=== PATIENT | female | born 1980 | race Caucasian/White ===

== ENCOUNTER 2017-12-24 06:43 | Emergency (ER) | payer SELFPAY ==
[~2017-12-24] VITALS: Ht 165.1 cm; Wt 97.8 kg
[~2017-12-24 06:43] MED LIST: NO HOME MEDS
[2017-12-24 07:42] LABS: BASOPHIL (%) 0.9 % (0-1); BASOPHIL COUNT 0.1 K/uL (0-0.1); EOSINOPHIL (%) 2.6 % (0-5); EOSINOPHIL COUNT 0.2 K/uL (0-0.3); HEMATOCRIT 38.1 % (36.0-46.0); HEMOGLOBIN 12.9 G/DL (11.9-15.5); IMMATURE GRANULOCYTE (%) 0.4 % (0.0-0.7); LYMPHOCYTE (%) 21.8 % (15-42); LYMPHOCYTE COUNT 1.9 K/uL (1.0-2.8); MCH 28.7 PG (29.0-34.0); MCHC 33.9 G/DL (30.0-36.0); MCV 84.9 FL (83-99); MONOCYTE (%) 8.8 % (3-12); MONOCYTE COUNT 0.8 K/uL (0-0.8); NEUTROPHIL (%) 65.5 % (45-76); NEUTROPHIL COUNT 5.6 K/uL (1.8-6.4); PLATELET COUNT 359 K/uL (156-360); RBC DIS.WIDTH-CV 12.7 % (11.8-14.6); RBC DIS.WIDTH-SD 38.6 % (39-53); RED BLOOD COUNT 4.49 M/uL (3.80-5.20); WHITE BLOOD COUNT 8.5 K/uL (4.1-10.2)
[2017-12-24 08:06] LABS: APPEARANCE CLEAR ((CLEAR)); BILIRUBIN NEGATIVE; BLOOD SMALL; COLOR YELLOW ((YELLOW)); GLUCOSE (STRIP) NEGATIVE; KETONES NEGATIVE; LEUKOCYTES NEGATIVE; NITRITE NEGATIVE; PROTEIN (STRIP) NEGATIVE; SPECIFIC GRAVITY 1.027 (1.000-1.030); UROBILINOGEN 0.2 MG/DL (0.2-1.0)
[2017-12-24 08:11] LABS: BACTERIA NONE SEEN /HPF; EPITHELIAL CELLS 1+ /HPF; MUCUS TRACE /LPF; RED BLOOD CELLS 0-5 /HPF (0-5); UCUL ADDED? NO; WHITE BLOOD CELLS 0-5 /HPF (0-5)
[2017-12-24 08:12] LABS: ALBUMIN 4.2 G/DL (3.2-4.8); CHLORIDE 105 MEQ/L (99-109); POTASSIUM 3.7 MEQ/L (3.7-5.4); SODIUM 136 MEQ/L (136-147); TOTAL BILIRUBIN 0.4 MG/DL (0.0-1.0)
[2017-12-24 08:17] LABS: ALKALINE PHOSPHATASE 110 IU/L (3-129); ALT (GPT) 31 IU/L (3-49); AST (GOT) 27 IU/L (2-34); CREATININE 0.7 MG/DL (0.6-1.3); GFR ESTIMATE (CALCULATED) > 59 mL/min/; GLUCOSE 116 mg/dL (70-99); LIPASE 19 U/L (1.0-51.0); TOTAL PROTEIN 6.9 G/DL (6.4-8.3); UREA NITROGEN (BUN) 11 mg/dL (9-23)
[2017-12-24 08:21] LABS: QUANTITATIVE HCG < 4.0 MIU/ML
[2017-12-24] MEDS ORDERED: ZOFRAN ODT4 MG PO (11:02)
[2017-12-24] MEDS ORDERED: NORCO 5/3251 TABLET PO (11:03)
[2017-12-24 11:11] VITALS: BP 158/92
[2017-12-24] MEDS ORDERED: TUMS500 MG PO (22:25)
[2017-12-24] MEDS ORDERED: TYLENOL EXTRA500 MG PO (22:25)
== END 2017-12-24 11:12 | disposition left against medical advice (07) ==
LOC: EME 06:43
PROVIDERS: Emergency Medicine
DX: K80.20 Calculus of gallbladder without cholecystitis without obstruction (principal); Z87.19 Personal history of other diseases of the digestive system; Z87.42 Personal history of other diseases of the female genital tract; Z88.0 Allergy status to penicillin
CPT/HCPCS: 71045; 76705; 80053; 81003; 83690; 84702; 85025; 99281; 99284; J2405; J3010; J7040

== ENCOUNTER 2017-12-24 16:23 | Inpatient (IN) | payer SELFPAY ==
[~2017-12-24] VITALS: Ht 165.1 cm; Wt 96.4 kg
[~2017-12-24 16:23] MED LIST changes: +NORCO 5/3251 TABLET PO; +ZOFRAN ODT4 MG PO
[2017-12-24 17:53] LABS: HEMATOCRIT 40.3 % (36.0-46.0); HEMOGLOBIN 13.9 G/DL (11.9-15.5); MCH 29.3 PG (29.0-34.0); MCHC 34.5 G/DL (30.0-36.0); MCV 84.8 FL (83-99); PLATELET COUNT 380 K/uL (156-360); RBC DIS.WIDTH-CV 12.6 % (11.8-14.6); RBC DIS.WIDTH-SD 38.6 % (39-53); RED BLOOD COUNT 4.75 M/uL (3.80-5.20); WHITE BLOOD COUNT 17.6 K/uL (4.1-10.2)
[2017-12-24 18:03] LABS: ALBUMIN 4.4 g/dL (3.2-4.8)
[2017-12-24 18:04] LABS: CHLORIDE 104 mEq/L (99-109); SODIUM 137 mEq/L (136-147)
[2017-12-24 18:06] LABS: GLUCOSE 107 mg/dL (70-99); TOTAL PROTEIN 7.9 g/dL (6.4-8.3)
[2017-12-24 18:08] LABS: TOTAL BILIRUBIN 0.6 mg/dL (0.0-1.0)
[2017-12-24 18:09] LABS: ALKALINE PHOSPHATASE 125 IU/L (3-129)
[2017-12-24 18:10] LABS: CREATININE 0.7 mg/dL (0.6-1.3); GFR ESTIMATE (CALCULATED) > 59 mL/min/
[2017-12-24 18:11] LABS: AST (GOT) 33 IU/L (2-34); UREA NITROGEN (BUN) 6 mg/dL (9-23)
[2017-12-24 18:13] LABS: ALT (GPT) 41 IU/L (3-49); LIPASE 19 U/L (1.0-51.0)
[2017-12-24] MEDS ORDERED: TUMS500 MG PO (22:25)
[2017-12-24] MEDS ORDERED: TYLENOL EXTRA500 MG PO (22:25)
[2017-12-25 03:05] VITALS: BP 122/72
[2017-12-25 07:24] VITALS: BP 114/61
[2017-12-25 10:06] LABS: BASOPHIL (%) 0.5 % (0-1); BASOPHIL COUNT 0.1 K/uL (0-0.1); EOSINOPHIL COUNT 0.1 K/uL (0-0.3); HEMATOCRIT 38.2 % (36.0-46.0); HEMOGLOBIN 12.7 G/DL (11.9-15.5); IMMATURE GRANULOCYTE (%) 0.3 % (0.0-0.7); LYMPHOCYTE (%) 15.5 % (15-42); LYMPHOCYTE COUNT 1.5 K/uL (1.0-2.8); MCH 28.6 PG (29.0-34.0); MCHC 33.2 G/DL (30.0-36.0); NEUTROPHIL (%) 72.7 % (45-76); NEUTROPHIL COUNT 7.2 K/uL (1.8-6.4); PLATELET COUNT 335 K/uL (156-360); RBC DIS.WIDTH-CV 12.9 % (11.8-14.6); RBC DIS.WIDTH-SD 40.1 % (39-53); RED BLOOD COUNT 4.44 M/uL (3.80-5.20); WHITE BLOOD COUNT 9.9 K/uL (4.1-10.2)
[2017-12-25 10:29] LABS: ALBUMIN 3.9 G/DL (3.2-4.8); ALKALINE PHOSPHATASE 101 IU/L (3-129); ALT (GPT) 24 IU/L (3-49); AMYLASE 22 IU/L (1-118); AST (GOT) 19 IU/L (2-34); CHLORIDE 103 MEQ/L (99-109); CREATININE 0.6 MG/DL (0.6-1.3); DIRECT BILIRUBIN 0.1 mg/dL (0.0-0.3); GFR ESTIMATE (CALCULATED) > 59 mL/min/; GLUCOSE 103 mg/dL (70-99); POTASSIUM 3.8 MEQ/L (3.7-5.4); SODIUM 137 MEQ/L (136-147); TOTAL PROTEIN 6.2 G/DL (6.4-8.3); UREA NITROGEN (BUN) 4 mg/dL (9-23)
[2017-12-25 10:34] LABS: TOTAL BILIRUBIN 0.6 MG/DL (0.0-1.0)
[2017-12-25 11:26] VITALS: BP 107/61
[2017-12-25 23:47] VITALS: BP 121/58
[2017-12-26 07:41] VITALS: BP 100/59
[2017-12-26 12:14] VITALS: BP 116/67
[2017-12-26 16:24] VITALS: BP 104/59
[2017-12-26 22:09] VITALS: BP 123/66
[2017-12-26 23:10] VITALS: BP 103/57
[2017-12-27 03:33] VITALS: BP 104/60
[2017-12-27 06:44] LABS: HEMATOCRIT 37.2 % (36.0-46.0); HEMOGLOBIN 12.4 G/DL (11.9-15.5); MCH 28.9 PG (29.0-34.0); MCHC 33.3 G/DL (30.0-36.0); MCV 86.7 FL (83-99); PLATELET COUNT 286 K/uL (156-360); RBC DIS.WIDTH-CV 12.6 % (11.8-14.6); RBC DIS.WIDTH-SD 39.7 % (39-53); RED BLOOD COUNT 4.29 M/uL (3.80-5.20); WHITE BLOOD COUNT 10.5 K/uL (4.1-10.2)
[2017-12-27 07:18] LABS: ALBUMIN 3.9 G/DL (3.2-4.8); ALKALINE PHOSPHATASE 93 IU/L (3-129); ALT (GPT) 35 IU/L (3-49); CHLORIDE 105 MEQ/L (99-109); CREATININE 0.5 MG/DL (0.6-1.3); GFR ESTIMATE (CALCULATED) > 59 mL/min/; GLUCOSE 148 mg/dL (70-99); POTASSIUM 4.4 MEQ/L (3.7-5.4); SODIUM 138 MEQ/L (136-147); TOTAL PROTEIN 6.2 G/DL (6.4-8.3); UREA NITROGEN (BUN) 5 mg/dL (9-23)
[2017-12-27 07:20] LABS: AST (GOT) 39 IU/L (2-34); TOTAL BILIRUBIN 0.4 MG/DL (0.0-1.0)
[2017-12-27 07:23] VITALS: BP 120/70
[2017-12-27 15:58] VITALS: BP 110/62
[2017-12-27 23:25] VITALS: BP 107/56
[2017-12-27 23:58] LABS: ALBUMIN 3.5 g/dL (3.2-4.8)
[2017-12-28 00:02] LABS: TOTAL PROTEIN 6.3 g/dL (6.4-8.3)
[2017-12-28 00:06] LABS: AST (GOT) 33 IU/L (2-34)
[2017-12-28 00:07] LABS: ALT (GPT) 39 IU/L (3-49); DIRECT BILIRUBIN 0.2 mg/dL (0.0-0.3)
[2017-12-28 00:54] LABS: ALKALINE PHOSPHATASE 90 IU/L (3-129); TOTAL BILIRUBIN 0.3 mg/dL (0.0-1.0)
[2017-12-28 07:34] VITALS: BP 110/55
[2017-12-28 15:25] VITALS: BP 114/68
[2017-12-28 23:44] VITALS: BP 116/63
[2017-12-29 07:05] LABS: ALBUMIN 3.3 G/DL (3.2-4.8); ALKALINE PHOSPHATASE 80 IU/L (3-129); ALT (GPT) 35 IU/L (3-49); AST (GOT) 33 IU/L (2-34); CHLORIDE 99 MEQ/L (99-109); CREATININE 0.6 MG/DL (0.6-1.3); GFR ESTIMATE (CALCULATED) > 59 mL/min/; SODIUM 137 MEQ/L (136-147); TOTAL BILIRUBIN 0.4 MG/DL (0.0-1.0); TOTAL PROTEIN 5.6 G/DL (6.4-8.3); UREA NITROGEN (BUN) 6 mg/dL (9-23)
[2017-12-29 07:06] LABS: GLUCOSE 101 mg/dL (70-99)
[2017-12-29 08:10] VITALS: BP 101/62
[2017-12-29 23:54] VITALS: BP 114/68
[2017-12-30 05:54] LABS: BASOPHIL (%) 0.9 % (0-1); BASOPHIL COUNT 0.1 K/uL (0-0.1); EOSINOPHIL (%) 5.4 % (0-5); EOSINOPHIL COUNT 0.4 K/uL (0-0.3); HEMATOCRIT 37.5 % (36.0-46.0); HEMOGLOBIN 12.5 G/DL (11.9-15.5); IMMATURE GRANULOCYTE (%) 0.3 % (0.0-0.7); LYMPHOCYTE (%) 29.3 % (15-42); LYMPHOCYTE COUNT 1.9 K/uL (1.0-2.8); MCH 28.5 PG (29.0-34.0); MCHC 33.3 G/DL (30.0-36.0); MCV 85.4 FL (83-99); MONOCYTE (%) 10.3 % (3-12); MONOCYTE COUNT 0.7 K/uL (0-0.8); NEUTROPHIL (%) 53.8 % (45-76); NEUTROPHIL COUNT 3.6 K/uL (1.8-6.4); PLATELET COUNT 306 K/uL (156-360); RBC DIS.WIDTH-CV 12.8 % (11.8-14.6); RBC DIS.WIDTH-SD 39.8 % (39-53); RED BLOOD COUNT 4.39 M/uL (3.80-5.20); WHITE BLOOD COUNT 6.6 K/uL (4.1-10.2)
[2017-12-30 06:24] LABS: CHLORIDE 100 MEQ/L (99-109); CREATININE 0.6 MG/DL (0.6-1.3); GFR ESTIMATE (CALCULATED) > 59 mL/min/; GLUCOSE 102 mg/dL (70-99); POTASSIUM 4.1 MEQ/L (3.7-5.4); SODIUM 136 MEQ/L (136-147); UREA NITROGEN (BUN) 9 mg/dL (9-23)
[2017-12-30 08:03] VITALS: BP 99/63
[2017-12-30] MEDS ORDERED: PANTOPRAZOLE SO40 MG PO (11:10)
[2017-12-30] MEDS ORDERED: MOTRIN600 MG PO (11:10)
[2017-12-30] MEDS ORDERED: NORCO 5/3251 TABLET PO (16:39)
== END 2017-12-30 16:53 | disposition home or self-care (01) | DRG 419 ==
LOC: EME 16:23 → EDOF 12-25 01:35 → 2EAST 12-25 02:26 → EDOF 12-25 02:26 → 2EAST 12-25 02:59
PROVIDERS: Emergency Medicine; Hospitalist; Internal Medicine; Specialist; Surgery
PROC: 0FB44ZZ Excision of Gallbladder, Percutaneous Endoscopic Approach (ICD-10-PCS; principal; 2017-12-26)
DX: K80.00 Calculus of gallbladder with acute cholecystitis without obstruction (principal); K29.80 Duodenitis without bleeding; N80.9 Endometriosis, unspecified; E66.01 Morbid (severe) obesity due to excess calories; Z68.35 Body mass index [BMI] 35.0-35.9, adult; R19.4 Change in bowel habit; E78.5 Hyperlipidemia, unspecified; G43.909 Migraine, unspecified, not intractable, without status migrainosus; M19.90 Unspecified osteoarthritis, unspecified site; Z86.73 Personal history of transient ischemic attack (TIA), and cerebral infarction without residual deficits; Z88.0 Allergy status to penicillin
CPT/HCPCS: 71045; 74177; 74181; 76705; 80048; 80053; 80076; 81003; 82150; 82248; 83690; 84702; 85025; 85025 91; 85027; 87040; 87177; 87329; 87493; 87506; 88304; 99281; 99284; 99285; C9113; J0131; J0330; J1100; J1170; J1630; J1644; J1956; J2060; J2250; J2270; J2405; J2710; J2765; J3010; J3370; J7030; J7040; J7643